=== PATIENT | female | born 1970 | race Caucasian/White ===

== ENCOUNTER 2017-03-16 06:22 | Emergency (ER) | payer SELFPAY ==
[~2017-03-16] VITALS: Ht 160 cm; Wt 78.0 kg
[2017-03-16] MEDS ORDERED: SODIUM CHLORIDE FLUSH 10ML SYR IVF ONE (07:30)
[2017-03-16 07:35] LABS: HEMATOCRIT 40.3 % (34.6-47.8); HEMOGLOBIN 13.6 g/dL (11.7-16.4)
[2017-03-16 07:42] LABS: BLOOD UREA NITROGEN 11 mg/dL (7-18)
[2017-03-16 07:49] LABS: ASPARTATE AMINO TRANSFERASE 20 U/L (15-37)
[2017-03-16] MEDS ORDERED: OMNIPAQUE 350 MG/ML, 100ML BOTTLE ONE (09:05)
[2017-03-16 09:41] VITALS: BP 135/95
== END 2017-03-16 09:42 | disposition home or self-care (01) ==
LOC: ED 08:00
DX: R10.84 Generalized abdominal pain (principal); E86.0 Dehydration
CPT/HCPCS: 36415; 74177; 80053; 81003; 83690; 84703; 85025; 99285; Q9967

== ENCOUNTER 2017-05-18 09:06 | Emergency (ER) | payer SELFPAY ==
[~2017-05-18] VITALS: Ht 147.3 cm; Wt 79.7 kg
[2017-05-18 09:09] VITALS: BP 151/93
== END 2017-05-18 10:34 | disposition home or self-care (01) ==
LOC: ED 09:30
DX: B34.9 Viral infection, unspecified (principal); M94.0 Chondrocostal junction syndrome [Tietze]; Z77.22 Contact with and (suspected) exposure to environmental tobacco smoke (acute) (chronic)
CPT/HCPCS: 71020; 99284

== ENCOUNTER 2018-01-08 20:03 | Emergency (ER) | payer SELFPAY ==
[~2018-01-08] VITALS: Ht 147.3 cm; Wt 78.2 kg
[2018-01-08] MEDS ORDERED: ACETAMINOPHEN 500 MG TABLET PO ONE (20:30)
[2018-01-08] MEDS ORDERED: LEVETIRACETAM 1,000 MG in SODIUM CHLORIDE 0.9% 100 ML IV ONE (20:30)
[2018-01-08 20:43] LABS: BASOPHILS # (AUTO) 0.04 x10^3/uL (0-0.1); BASOPHILS % (AUTO) 0 % (0-1); EOSINOPHILS # (AUTO) 0.04 x10^3/uL (0-0.4); EOSINOPHILS % (AUTO) 0 % (1-7); LYMPHOCYTES # (AUTO) 2.46 x10^3/uL (1-3.4); LYMPHOCYTES % (AUTO) 25 % (22-44); MD NO; MEAN CORPUSCULAR HEMOGLOBIN 31.7 pg (27.0-34.8); MEAN CORPUSCULAR HGB CONC 33.7 g/dL (32.4-35.8); MEAN CORPUSCULAR VOLUME 94.2 fL (80-100); MEAN PLATELET VOLUME 7.9 fL (7.4-10.4); MONOCYTES # (AUTO) 0.75 x10^3/uL (0.2-0.8); MONOCYTES % (AUTO) 8 % (2-9); NEUTROPHILS # (AUTO) 6.65 x10^3/uL (1.8-6.8); NEUTROPHILS % (AUTO) 67 % (42-75); PLATELET COUNT 232 x10^3/uL (130-400); RED BLOOD COUNT 4.49 x10^6/uL (3.82-5.3); RED CELL DISTRIBUTION WIDTH 14.3 % (9.6-15.2)
[2018-01-08 20:55] LABS: ALBUMIN 3.8 g/dL (3.4-5.0); ANION GAP 6 mmol/L (5-15); CHLORIDE 114 mmol/L (98-107); CREATININE 0.53 mg/dL (0.55-1.02)
[2018-01-08] MEDS ORDERED: ACETAMINOPHEN 500 MG TABLET ONE (21:11)
[2018-01-08 21:16] VITALS: BP 112/72
[2018-01-08] MEDS ORDERED: ONDANSETRON ODT 4 MG ONE (21:53)
[2018-01-08] MEDS ORDERED: ONDANSETRON ODT 4 MG PO ONE (22:00)
== END 2018-01-08 22:23 | disposition home or self-care (01) ==
LOC: ED 22:10
DX: G40.909 Epilepsy, unspecified, not intractable, without status epilepticus (principal); R51 Headache
CPT/HCPCS: 36415; 70450; 80048; 82040; 83605; 85025; 93005; 96365; 99285; J1953; Q0162

== ENCOUNTER 2018-07-30 16:30 | Emergency (ER) | payer MEDICAID, OTHER ==
[~2018-07-30] VITALS: Ht 147.3 cm; Wt 79.8 kg
[2018-07-30 17:15] LABS: BASOPHILS # (AUTO) 0.03 x10^3/uL (0-0.1); BASOPHILS % (AUTO) 0 % (0-1); EOSINOPHILS # (AUTO) 0.05 x10^3/uL (0-0.4); EOSINOPHILS % (AUTO) 1 % (1-7); LYMPHOCYTES # (AUTO) 2.61 x10^3/uL (1-3.4); LYMPHOCYTES % (AUTO) 34 % (22-44); MD NO; MEAN CORPUSCULAR HGB CONC 33.9 g/dL (32.4-35.8); MEAN CORPUSCULAR VOLUME 94.4 fL (80-100); MEAN PLATELET VOLUME 8.3 fL (7.4-10.4); MONOCYTES # (AUTO) 0.75 x10^3/uL (0.2-0.8); MONOCYTES % (AUTO) 10 % (2-9); NEUTROPHILS # (AUTO) 4.29 x10^3/uL (1.8-6.8); NEUTROPHILS % (AUTO) 56 % (42-75); PLATELET COUNT 224 x10^3/uL (130-400); RED BLOOD COUNT 4.49 x10^6/uL (3.82-5.3); RED CELL DISTRIBUTION WIDTH 14.1 % (9.6-15.2)
[2018-07-30 17:26] LABS: ALBUMIN 3.7 g/dL (3.4-5.0); ANION GAP 6 mmol/L (5-15); CALCIUM 9.3 mg/dL (8.5-10.1); CHLORIDE 112 mmol/L (98-107)
[2018-07-30 17:30] LABS: ALANINE AMINOTRANSFERASE 26 U/L (12-78); ALKALINE PHOSPHATASE 79 U/L (45-117); BILIRUBIN,TOTAL 0.5 mg/dL (0.2-1.0); CREATININE 0.53 mg/dL (0.55-1.02); TOTAL PROTEIN 7.8 g/dL (6.4-8.2)
--- NOTE | 2018-07-30 18:34 | NUR ---
Pt amb to 17 from [facility]
--- NOTE | 2018-07-30 18:51 | NUR ---
PT IN ROOM. BOYFRIEND IN ROOM.
[2018-07-30 18:54] VITALS: BP 99/43
[2018-07-30] MEDS ORDERED: MORPHINE SULFATE 4 MG/ML, 1ML IVPush ONE (19:30)
[2018-07-30] MEDS ORDERED: MORPHINE SULFATE 4 MG/ML, 1ML ONE (19:45)
[2018-07-30] MEDS ORDERED: ONDANSETRON 2MG/ML, 2ML ONE (19:55)
[2018-07-30] MEDS ORDERED: ONDANSETRON 2MG/ML, 2ML IVPush ONE (20:00)
== END 2018-07-30 21:37 ==
LOC: ED 19:23
DX: K80.00 Calculus of gallbladder with acute cholecystitis without obstruction (principal); R10.11 Right upper quadrant pain
CPT/HCPCS: 36415; 71045; 76700; 80053; 83690; 84703; 85025; 93005; 96374; 96375; 99284; J2405

== ENCOUNTER 2018-07-31 16:19 | Inpatient (IN) | payer OTHER ==
[~2018-07-31] VITALS: Ht 147.3 cm; Wt 80.3 kg
[2018-07-31] MEDS ORDERED: ONDANSETRON 2MG/ML, 2ML IVPush ONE ×2 (17:00→19:00)
[2018-07-31] MEDS ORDERED: MORPHINE SULFATE 4 MG/ML, 1ML IVPush PRN ×2 (17:00→22:00)
[2018-07-31 17:08] LABS: ALBUMIN 3.7 g/dL (3.4-5.0); ANION GAP 7 mmol/L (5-15); CALCIUM 8.6 mg/dL (8.5-10.1); CHLORIDE 110 mmol/L (98-107)
[2018-07-31 17:12] LABS: ALANINE AMINOTRANSFERASE 26 U/L (12-78); ALKALINE PHOSPHATASE 78 U/L (45-117); BILIRUBIN,TOTAL 0.2 mg/dL (0.2-1.0); CREATININE 0.55 mg/dL (0.55-1.02); TOTAL PROTEIN 7.6 g/dL (6.4-8.2)
[2018-07-31] MEDS ORDERED: ONDANSETRON 2MG/ML, 2ML ONE ×2 (17:14→20:32)
[2018-07-31] MEDS ORDERED: MORPHINE SULFATE 4 MG/ML, 1ML ONE (17:15)
[2018-07-31 17:17] LABS: MEAN CORPUSCULAR HEMOGLOBIN 31.7 pg (27.0-34.8); MEAN CORPUSCULAR HGB CONC 33.6 g/dL (32.4-35.8); MEAN CORPUSCULAR VOLUME 94.1 fL (80-100); MEAN PLATELET VOLUME 8.2 fL (7.4-10.4); PLATELET COUNT 233 x10^3/uL (130-400); RED BLOOD COUNT 4.51 x10^6/uL (3.82-5.3); RED CELL DISTRIBUTION WIDTH 14.3 % (9.6-15.2)
--- NOTE | 2018-07-31 17:25 | NUR ---
pt to [place] via [facility] in [place] at this time
[2018-07-31 17:47] LABS: MICROSCOPIC NOT IND
[2018-07-31 17:55] LABS: CULTURE INDICATED? NO
[2018-07-31 18:17] LABS: BASOPHILS # (AUTO) 0.04 x10^3/uL (0-0.1); BASOPHILS % (AUTO) 0 % (0-1); EOSINOPHILS # (AUTO) 0.08 x10^3/uL (0-0.4); EOSINOPHILS % (AUTO) 1 % (1-7); LYMPHOCYTES # (AUTO) 3.08 x10^3/uL (1-3.4); LYMPHOCYTES % (AUTO) 33 % (22-44); MONOCYTES # (AUTO) 0.86 x10^3/uL (0.2-0.8); MONOCYTES % (AUTO) 9 % (2-9); NEUTROPHILS # (AUTO) 5.39 x10^3/uL (1.8-6.8); NEUTROPHILS % (AUTO) 57 % (42-75)
[2018-07-31 18:18] LABS: MD NO
--- NOTE | 2018-07-31 18:34 | NUR ---
PT IN BED, NAD, NO NEEDS AT THIS TIME, AWAITING ERMD TO CONSULT SURGERY FOR DISPO. WCTM
--- NOTE | 2018-07-31 18:43 | NUR ---
PT'S BOYFRIEND CONTACT INFO:
[2018-07-31 19:25] VITALS: BP 104/63
[2018-07-31] MEDS ORDERED: BUPIVACAINE/PF-EPI 0.5% 1:200K ONE (20:12)
[2018-07-31] MEDS ORDERED: FENTANYL PF 100 MCG/2ML ONE ×2 (20:30→21:40)
[2018-07-31] MEDS ORDERED: GLYCOPYRROLATE 0.2MG/1ML, 5ML ONE (20:32)
[2018-07-31] MEDS ORDERED: ROCURONIUM 10 MG/ML,10ML ONE (20:32)
[2018-07-31] MEDS ORDERED: DEXAMETHASONE 4 MG/ML, 1ML ONE (20:32)
[2018-07-31] MEDS ORDERED: CEFOTETAN 2 GM ONE (20:32)
[2018-07-31] MEDS ORDERED: SUCCINYLCHOLINE 20 MG/ML, 10ML ONE (20:32)
[2018-07-31] MEDS ORDERED: NEOSTIGMINE 1 MG/ML, 10ML ONE (20:32)
[2018-07-31] MEDS ORDERED: PROPOFOL 10 MG/ML, 20ML ONE (20:32)
[2018-07-31] MEDS ORDERED: KETOROLAC 30 MG/1 ML ONE (20:32)
[2018-07-31] MEDS ORDERED: HYDROmorphone 2 MG/ML, 1ML IVPush PRN (21:00)
[2018-07-31] MEDS ORDERED: DIPHENHYDRAMINE 50 MG/ML, 1ML IVPush PRN (21:00)
[2018-07-31] MEDS ORDERED: METOPROLOL 1 MG/ML, 5ML IV PRN (21:00)
[2018-07-31] MEDS ORDERED: OXYcodone 5 MG/5 ML ORAL.SOL UDC PO PRN (21:00)
[2018-07-31] MEDS ORDERED: hydrALAzine 20 MG/ML, 1ML IV PRN (21:00)
[2018-07-31] MEDS ORDERED: PROCHLORPERAZINE 5 MG/ML, 2ML IV PRN (21:00)
[2018-07-31] MEDS ORDERED: MEPERIDINE/PF 25MG/0.5ML IVPush PRN (21:00)
[2018-07-31] MEDS ORDERED: HALOPERIDOL 5 MG/ML IV PRN (21:00)
[2018-07-31] MEDS ORDERED: FENTANYL PF 100 MCG/2ML IV PRN (21:00)
[2018-07-31] MEDS ORDERED: PROMETHAZINE 25 MG/ML, 1ML IV PRN (21:00)
[2018-07-31] MEDS ORDERED: LABETALOL 5MG/ML, 20ML IV PRN (21:00)
[2018-07-31] MEDS ORDERED: POTASSIUM CHLORIDE 20 MEQ in D5%-0.45% NACL 1,000 ML IV SCH (21:39)
[2018-07-31] MEDS ORDERED: MEPERIDINE/PF 25MG/ML,1ML ONE (21:59)
[2018-07-31] MEDS ORDERED: OXYcodone 5 MG/5 ML ORAL.SOL UDC ONE (21:59)
[2018-07-31] MEDS ORDERED: ONDANSETRON 2MG/ML, 2ML IVPush PRN (22:00)
[2018-07-31] MEDS ORDERED: ACETAMINOPHEN 650 MG/20.3 ML UDC PO PRN (22:00)
[2018-07-31] MEDS: OXYcodone 5 MG/5 ML ORAL.SOL UDC PO PRN (22:07)
[2018-07-31 23:53] VITALS: BP 96/62
[2018-08-01 03:01] VITALS: BP 120/83
[2018-08-01] MEDS: KETOROLAC 30 MG/1 ML IV PRN ×2 (03:24→09:59)
[2018-08-01 08:44] VITALS: BP 103/59
[2018-08-01] MEDS: OXYcodone 5 MG/5 ML ORAL.SOL UDC PO PRN (09:59)
[2018-08-01] MEDS ORDERED: OXYC5TAB3 PO (10:25)
[2018-08-01] MEDS ORDERED: ONDA4TAB7 PO (10:26)
== END 2018-08-01 11:25 | disposition home or self-care (01) | DRG 419 ==
LOC: ED 18:08 → EDIP 18:42 → 4NOR 19:12 → DCLOUNGE 08-01 10:54
PROVIDERS: ADMIT Surgery; ATTEND Surgery
PROC: 0FT44ZZ Resection of Gallbladder, Percutaneous Endoscopic Approach (ICD-10-PCS; principal; 2018-07-31 20:30)
DX: K80.00 Calculus of gallbladder with acute cholecystitis without obstruction (principal); K80.10 Calculus of gallbladder with chronic cholecystitis without obstruction; G40.909 Epilepsy, unspecified, not intractable, without status epilepticus; F41.1 Generalized anxiety disorder; K66.0 Peritoneal adhesions (postprocedural) (postinfection); K82.8 Other specified diseases of gallbladder
CPT/HCPCS: 36415; 99285; J3490; 76705; 80053; 81003; 83690; 85025; 88304; 96374; G0378; J1100; J1885; J2175; J2405; J2704; J2710; J3010; J3480; J0330